=== PATIENT | male | born 1955 | race Caucasian/White ===

== ENCOUNTER → 2016-10-14 | Outpatient (CLI) | payer OTHER ==
[~2016-10-14] MED LIST: ASPIRIN E.C.325 MG PO; LOPRESSOR25 MG PO; PLAVIX75 MG PO; ZESTRIL5 MG PO
== END | disposition home or self-care (01) ==
LOC: MRI 12:48
DX: D17.0 Benign lipomatous neoplasm of skin and subcutaneous tissue of head, face and neck (principal); J32.0 Chronic maxillary sinusitis

== ENCOUNTER 2016-12-16 11:18 | Emergency (ER) | payer OTHER ==
[~2016-12-16] VITALS: Ht 172.7 cm; Wt 73.5 kg
[2016-12-16] MEDS ORDERED: ATORVASTATIN CA40 M1 PO (11:26)
[2016-12-16] MEDS ORDERED: LEVOTHYROXIN0.025 M1 PO (11:26)
[2016-12-16] MEDS ORDERED: ELIQUIS5 M1 PO (11:28)
[2016-12-16] MEDS ORDERED: METOPROLOL TART50 M1 PO (11:28)
[2016-12-16] MEDS ORDERED: FLECAINIDE ACET50 M1 PO (11:29)
[2016-12-16] MEDS ORDERED: LISINOPRIL40 MG PO (11:30)
[2016-12-16] MEDS ORDERED: VITAMIN D50000 I3 PO (11:31)
[2016-12-16] MEDS ORDERED: ASPIR 8181 MG PO (11:32)
[2016-12-16] MEDS ORDERED: NAPROSYN500 MG PO (12:45)
== END 2016-12-16 12:56 | disposition home or self-care (01) ==
LOC: ED 11:18
DX: M25.561 Pain in right knee (principal); F17.200 Nicotine dependence, unspecified, uncomplicated; Z79.82 Long term (current) use of aspirin; Z79.899 Other long term (current) drug therapy

== ENCOUNTER → 2017-09-15 | Outpatient (CLI) | payer OTHER ==
[~2017-09-15] MED LIST changes: +ASPIR 8181 MG PO; +ATORVASTATIN CA40 M1 PO; +ELIQUIS5 M1 PO; +FLECAINIDE ACET50 M1 PO; +LEVOTHYROXIN0.025 M1 PO; +LISINOPRIL40 MG PO; +METOPROLOL TART50 M1 PO; +NAPROSYN500 MG PO; +VITAMIN D50000 I3 PO
== END | disposition home or self-care (01) ==
LOC: CARD 12:43
DX: I51.7 Cardiomegaly (principal); R60.0 Localized edema

== ENCOUNTER → 2018-04-26 | Outpatient (CLI) | payer OTHER ==
[2018-04-26 09:16] LABS: BUN 10 mg/dl (7-24); CHLORIDE 97 mmol/L (98-107); CREATININE 0.86 mg/dL (0.70-1.30); POTASSIUM 3.1 mmol/L (3.5-5.1); SODIUM 133 mmol/L (136-145)
== END ==
LOC: LAB 08:24
PROVIDERS: Nurse Practitioner Adult Health
DX: I48.91 Unspecified atrial fibrillation (principal)

== ENCOUNTER 2018-05-17 20:13 | Inpatient (IN) | payer OTHER ==
[2018-05-17] VITALS (7 sets, daily range): BP systolic 143–160; BP diastolic 63–100
[~2018-05-17] VITALS: Ht 172.7 cm; Wt 80.9 kg
--- NOTE | ~2018-05-17 | PR ---
[place], [place] PROGRESS NOTE NAME: ERUM LEMONS UNIT #: [id number] ROOM: 406 DOCTOR: HARIS HESTER MD BIRTHDATE: [birth year] DOS: 05/21/2018 PULMONARY PROGRESS NOTE SUBJECTIVE: The patient noted comfortable at this time, resting on the bed, has not been noted any symptoms of chest pain, significant reduction in the respiratory symptoms were noted in the last 24 hours. The wheezing has been improving gradually. There were no symptoms of fever or chills or chest pain. The patient's overall symptoms are resolving. He was ambulating as well. OBJECTIVE: VITAL SIGNS: For the patient, which were recorded showed the temperature noted as normal, respiratory rate 20, heart rate of 105-84, blood pressure 119/74-171/95. Pulse oxygen saturation on room air was 90% saturation. HEENT: Moderate obesity. NECK: Supple. CARDIOVASCULAR: S1, S2 audible. LUNGS: The patient was noted with mild expiratory wheezing, [id number]-ejwodkto decreased breath sounds bilaterally. No crackles. ABDOMEN: Soft, nontender. Bowel sounds present. EXTREMITIES: No edema. LABORATORY DATA: Culture of the sputum from yesterday was noted preliminary normal gabby. IMPRESSION: Progressive improvement and resolution of chronic obstructive pulmonary disease exacerbation, acute tracheobronchitis, currently treated with maximum medical management, chronic nicotine dependence, suspected obstructive sleep apnea disorder. PLAN OF TREATMENT: The patient could be planned for discharge home at this time from the pulmonary standpoint. Tobacco cessation was recommended. The patient would like to be started on the nicotine replacement patch, which will be by the primary care attending prior to discharge. [place], [place] PROGRESS NOTE NAME: ERUM LEMONS UNIT #: [id number] ROOM: 406 DOCTOR: HARIS HESTER MD BIRTHDATE: [birth year] HARIS LE MD CM:PNTRANS [id number] HARIS ALLEN MD 05/21/182219 interface
--- NOTE | ~2018-05-17 | CON ---
[place], [place] REPORT OF CONSULTATION [id number] UNIT #: [id number] ROOM: 406 DOCTOR: HARIS HESTER MD BIRTHDATE: [birth year] DOS: 05/19/2018 CONSULTATION REQUESTED BY: Hospitalist Service. REASON FOR CONSULTATION: For assessment of COPD exacerbation. HISTORY OF PRESENT ILLNESS: This is a 63-year-old white male with past history of COPD, presented to the hospital. He has developed acute respiratory symptom approximately 10 days ago, which were noted progressively worsened. The symptoms have been noted with significant increased coughing, which remains nonproductive most of the time. Occasional sputum expectoration reported by the patient. The symptoms were associated with some chest pain under the ribs because of the excessive cough. The patient does have symptoms of wheezing and shortness of breath associated with that as well that has been worsened. He denies any symptoms of fever or chills with current symptom. He has been assessed on 05/17/2018, admitted to the hospital for further care. Currently, the patient treated for acute exacerbation of COPD and his management. REVIEW OF SYSTEMS: CONSTITUTIONAL: Fatigue and tiredness reported. Denies symptoms of fever or chills. EYES: Denies burning, redness, or tenderness. EARS, NOSE, THROAT SYMPTOMS: Denies sore throat, hoarseness, otalgia, possible drainage or epistaxis. CARDIOVASCULAR: Denies anginal pain, edema, or pain of lower extremities. GASTROINTESTINAL: Dysphagia, nausea, vomiting, diarrhea, abdominal pain, hematemesis, melena, or hematochezia. GENITOURINARY: No dysuria, suprapubic pain, hematuria. MUSCULOSKELETAL: Joint pain, deformities or redness. CENTRAL NERVOUS SYSTEM: Denies diplopia, syncopal episodes or seizures. SKIN: No lesions or rashes. Remaining systems were reviewed. They were noted all negative. PAST MEDICAL HISTORY: 1. COPD. 2. Permanent atrial fibrillation with failed electrical cardioversion. 3. Peripheral arterial disease. 4. Essential hypertension. 5. Hypothyroidism. SOCIAL HISTORY: The patient is , has one child, lives at home. Smoking noted. Active smoking started as in the teen, pack of cigarettes per day, active tobacco use until hospitalization. PAST SURGICAL HISTORY: Noted surgery of the hand. FAMILY HISTORY: Father at 73 years old, complication of myocardial infarction. Mother with complication of unknown cancer between the age of 15-60 years old. [place], [place] REPORT OF CONSULTATION NAME: ERUM LEMONS UNIT #: [id number] ROOM: [facility] DOCTOR: MIMI ALELN MD,HARIS BIRTHDATE: [birth year] HOME MEDICATIONS: Listed as use of Norvasc, Eliquis, aspirin, Lipitor, vitamin D, flecainide, Breo Ellipta, Lasix, gabapentin, levothyroxine, lisinopril, metoprolol tartrate, naproxen, potassium chloride. DRUG ALLERGIES: Noted with no known drug allergies. PHYSICAL EXAMINATION: GENERAL: This is a [id number] male who has been currently noted awake, alert, without acute distress. VITAL SIGNS: Height 5 feet 8 inches, weight 178 pounds, BMI 27. Vital signs as a normal temperature, respiratory rate 18-24, heart rate of 88-116, blood pressure is 148/96 to 143/76. The pulse oxygen saturation on 2 liters nasal cannula 98% saturation. HEENT: Head was atraumatic. Eyes nonicterus. NECK: Supple. CARDIOVASCULAR: S1, S2 audible. LUNGS: The patient noted with diffuse reduction in breath sounds, expiratory wheezing bilaterally. There were no crackles. ABDOMEN: Soft, nontender. Bowel sounds present. EXTREMITIES: No acute edema, clubbing, cyanosis. MUSCULOSKELETAL: Without any acute deformities. CENTRAL NERVOUS SYSTEM: The patient's cranial nerves 2-12 intact. LABORATORY DATA: Blood culture was noted without any bacterial growth on 05/17/2018 on admission. CBC on 05/17/2018, WBC count is 11.6, remaining CBC normal. PT/PTT on 05/17/2018 is normal. Lactic acid 2.4 on admission. CMP on 05/17/2018 normal BUN and creatinine. Sodium 130. The CMP that was done this morning, sodium 132, normal BUN and creatinine. CBC this morning, WBC count 16.6, hemoglobin and hematocrit were normal. The platelet count was noted at 107 this morning. CBC of , platelet count 110,000. . LFTs was noted with AST mildly elevated at 167. Troponin, which was done on admission 05/17/2018 were all normal sets. Chest x-ray that was done, 1 view, was reviewed from the PACS images independently shows changes of COPD, hyperinflation without any acute pulmonary infiltration. IMPRESSION: 1. The patient with progressive acute respiratory symptom, worsened. The patient with acute exacerbation of chronic obstructive pulmonary disease in the last several days. History of chronic nicotine dependence, 1 pack of cigarettes per day. 2. Mild thrombocytopenia. The patient's etiology unclear at this time. 3. Essential hypertension. 4. Hypothyroidism. 5. History of permanent atrial fibrillation. PLAN OF TREATMENT: The dose of steroids will be gradually decreased and we will monitor respiratory symptom. Continue anticoagulation. Maximal management of the atrial fibrillation, nicotine placement patches to be continued. Continue the antibiotic, which has been started intravenously could be switched to oral [place], [place] REPORT OF CONSULTATION NAME: ERUM LEMONS UNIT #: [id number] ROOM: 406 DOCTOR: MIIM ALLEN MD,HARIS BIRTHDATE: [birth year] antibiotics as IV antibiotics not necessary because of lack of any pneumonia. All other supportive therapy, plan of management, care plan for the patient. Changes in the medical management. The patient will be ordered based on the progression of the illness. One thing about tobacco cessation has been done for the patient at the bedside as well. He was stating that he would like to quit smoking cigarettes and would not be smoking cigarettes after discharge from the hospital. The sputum for Gram stain culture will be ordered for the patient as well. Thanks for allowing to participate in the care of this patient. HARIS LE MD CM:CONSTR:REPORT OF CONSULTATION [id number] 05/19/18 1950 interface
--- NOTE | ~2018-05-17 | EKG ---
[place], [place] ELECTROCARDIOGRAM REPORT NAME: TERRY LEMONS UNIT #: [id number] ROOM: 406 DOCTOR: CARLOS DRAFT REPORT BIRTHDATE: [birth year] [facility] Test Date: 2018-05-17 Test Time: 20:34:11 Pat Name: TERRY LEMONS Department: ER Room: 406 Gender: M Upholstery Sewer: Terry Muñoz : 1955 Requested By: GURWINDER DOE Order Number: [id number] Reading MD: Terry Zhang MD Measurements Intervals Edgard Rate: 94 P: AK: QRS: 111 QRSD: 126 T: QT: 411 QTc: 515 Interpretive Statements Atrial fibrillation Nonspecific intraventricular conduction delay Nonspecific repol abnormality, lateral leads Electronically Signed On 05-18-2018 17:51:36 PST by Terry Zhang MD CM:EKGRPT:ELECTROCARDIOGRAM REPORT [id number] GURWINDER PALACIOS DRAFT REPORT GURWINDER DOE DO
--- NOTE | ~2018-05-17 | PR ---
[place], [place] PROGRESS NOTE NAME[facility]: [id number] UNIT #: [id number] ROOM: 406 DOCTOR: MIMI ALLEN MD,HARIS BIRTHDATE: [birth year] DOS: 05/20/2018 PULMONARY PROGRESS NOTE SUBJECTIVE: The patient has been noted comfortable at this time without any acute distress at the present time. Has not been noted any symptoms of chest pain, fever or chills. Shortness of breath symptom have been decreased, but not completely resolved in the last 24 hours. OBJECTIVE: VITAL SIGNS: Normal temperature, respiratory rate 20, heart rate 79, blood pressure 135/75. The pulse oxygen saturation recorded as 97% saturation on 2 liters nasal cannula. HEENT: Examination shows head was atraumatic. Eyes nonicterus. NECK: Supple. CARDIOVASCULAR: S1, S2 is audible. LUNGS: The patient was noted with xoee-ps-mrdwipcr expiratory wheezing, decreased from previous examination. There are no crackles. ABDOMEN: Soft, nontender. EXTREMITIES: Without any acute edema. LABORATORY DATA: The patient's CMP on 05/20/2018 WBC count noted 13.6, hemoglobin 13.5, platelet count was 99,000. CMP of the patient, normal BUN and creatinine. Glucose 113. IMPRESSION: Stable respiratory status, which is responding to current treatment for acute exacerbation of chronic obstructive pulmonary disease, acute bronchitis, moderate obesity, thrombocytopenia. PLAN OF MANAGEMENT: Agree with reduction of the corticosteroids. Ambulation will be encouraged. Possible discharge consideration in the morning would be considered as well. HARIS LE MD CM:PNTRANS [id number] 0 HARIS ALLEN MD 05/21/18 010 interface
[2018-05-17 20:48] LABS: BASO % 0.3 % (0.0-1.0); EOS % 0.3 % (1.0-4.0); HEMATOCRIT 46.7 % (42.0-52.0); HEMOGLOBIN 15.7 g/dl (14.0-18.0); LYMPH # 1.3 10*3/uL (1.3-4.4); LYMPH % 11.5 % (27.0-41.0); MEAN CELL VOLUME 103.8 fl (80.0-94.0); MEAN CORPUSCULAR HGB 34.9 pg (27.0-31.0); MEAN CORPUSCULAR HGB CONC 33.6 g/dl (33.0-37.0); MEAN PLATELET VOLUME 10.4 fl (9.6-12.3); MONO # 0.8 10*3/uL (0.1-1.0); MONO % 6.7 % (3.0-9.0); NEUT # 9.3 10*3/uL (2.3-7.9); NEUT % 80.8 % (47.0-73.0); PLATELET COUNT AUTOMATED 110 10*3/uL (130-400); RED CELL DISTRI WIDTH 13.7 % (0-14.5); WHITE BLOOD COUNT 11.6 10*3/uL (4.8-10.8)
[2018-05-17 20:59] LABS: ACT PARTIAL THROMBO TIME 31.8 SECONDS (20.8-31.5); INTERNATIONAL NORM RATIO 1.3 (2.0-3.5)
[2018-05-17 21:05] LABS: ALBUMIN 2.9 gm/dl (3.1-4.5); ALKALINE PHOSPHATASE 124 U/L (45-117); BUN 14 mg/dl (7-24); CHLORIDE 100 mmol/L (98-107); CREATININE 0.91 mg/dL (0.70-1.30); POTASSIUM 4.2 mmol/L (3.5-5.1); SGOT/AST 67 IU/L (3-35); SGPT/ALT 57 U/L (12-78); SODIUM 130 mmol/L (136-145); TOTAL PROTEIN 7.6 gm/dL (6.4-8.2)
[2018-05-17 21:06] LABS: TROPONIN I < 0.015 ng/ml (<0.045)
[2018-05-17] MEDS ORDERED: BREO ELLIPTA 11 EACH INH (23:55)
[2018-05-17] MEDS ORDERED: AMLODIPINE BESYL5 MG PO (23:55)
[2018-05-17] MEDS ORDERED: POTASSIUM CHLO20 ME3 PO (23:55)
[2018-05-17] MEDS ORDERED: FUROSEMIDE20 M1 PO (23:55)
[2018-05-17] MEDS ORDERED: GABAPENTIN100 M2 PO (23:56)
[2018-05-18 04:00] VITALS: BP 148/96
[2018-05-18 06:32] LABS: HEMATOCRIT 45.8 % (42.0-52.0); HEMOGLOBIN 15.3 g/dl (14.0-18.0); MEAN CELL VOLUME 103.9 fl (80.0-94.0); MEAN CORPUSCULAR HGB 34.7 pg (27.0-31.0); MEAN CORPUSCULAR HGB CONC 33.4 g/dl (33.0-37.0); MEAN PLATELET VOLUME 10.7 fl (9.6-12.3); PLATELET COUNT AUTOMATED 104 10*3/uL (130-400); RED BLOOD COUNT 4.41 10*6/uL (4.50-5.90); RED CELL DISTRI WIDTH 13.6 % (0-14.5); WHITE BLOOD COUNT 10.4 10*3/uL (4.8-10.8)
[2018-05-18 06:36] LABS: INTERNATIONAL NORM RATIO 1.3 (2.0-3.5)
[2018-05-18 06:38] LABS: ALBUMIN 2.6 gm/dl (3.1-4.5); ALKALINE PHOSPHATASE 110 U/L (45-117); BUN 13 mg/dl (7-24); CHLORIDE 100 mmol/L (98-107); CREATININE 0.88 mg/dL (0.70-1.30); FREE T4 0.87 ng/dl (0.76-1.46); POTASSIUM 4.5 mmol/L (3.5-5.1); SGOT/AST 59 IU/L (3-35); SGPT/ALT 51 U/L (12-78); SODIUM 130 mmol/L (136-145); TOTAL PROTEIN 7.1 gm/dL (6.4-8.2)
[2018-05-18 08:16] LABS: PLATELET SUFFICIENCY LOW (NORMAL); TOTAL CELLS COUNTED 100 #CELLS
[2018-05-18 12:00] VITALS: BP 142/76
[2018-05-18 16:00] VITALS: BP 143/76
[2018-05-18 20:00] VITALS: BP 142/70
[2018-05-19] VITALS: BP 149/96
[2018-05-19 07:31] LABS: BASO % 0.1 % (0.0-1.0); EOS % 0.1 % (1.0-4.0); HEMATOCRIT 46.2 % (42.0-52.0); HEMOGLOBIN 15.1 g/dl (14.0-18.0); LYMPH % 6.1 % (27.0-41.0); MEAN CELL VOLUME 104.3 fl (80.0-94.0); MEAN CORPUSCULAR HGB 34.1 pg (27.0-31.0); MEAN CORPUSCULAR HGB CONC 32.7 g/dl (33.0-37.0); MEAN PLATELET VOLUME 10.8 fl (9.6-12.3); MONO # 0.6 10*3/uL (0.1-1.0); MONO % 3.3 % (3.0-9.0); NEUT # 14.9 10*3/uL (2.3-7.9); NEUT % 89.9 % (47.0-73.0); PLATELET COUNT AUTOMATED 107 10*3/uL (130-400); RED BLOOD COUNT 4.43 10*6/uL (4.50-5.90); RED CELL DISTRI WIDTH 13.8 % (0-14.5); WHITE BLOOD COUNT 16.6 10*3/uL (4.8-10.8)
[2018-05-19 07:47] LABS: ALBUMIN 2.6 gm/dl (3.1-4.5); BUN 16 mg/dl (7-24); CHLORIDE 102 mmol/L (98-107); POTASSIUM 4.2 mmol/L (3.5-5.1); SODIUM 132 mmol/L (136-145)
[2018-05-19 07:51] LABS: ALKALINE PHOSPHATASE 103 U/L (45-117); CREATININE 0.75 mg/dL (0.70-1.30); PHOSPHOROUS 2.3 mg/dL (2.5-4.9); SGOT/AST 70 IU/L (3-35); SGPT/ALT 54 U/L (12-78); TOTAL PROTEIN 6.8 gm/dL (6.4-8.2)
[2018-05-19 08:00] VITALS: BP 140/90
[2018-05-19 12:00] VITALS: BP 137/82
[2018-05-19 16:00] VITALS: BP 132/74
[2018-05-19 20:00] VITALS: BP 140/65
[2018-05-20] VITALS: BP 134/80
[2018-05-20 05:59] LABS: BASO % 0.1 % (0.0-1.0); EOS % 0.1 % (1.0-4.0); HEMATOCRIT 41.8 % (42.0-52.0); HEMOGLOBIN 13.5 g/dl (14.0-18.0); LYMPH # 0.8 10*3/uL (1.3-4.4); LYMPH % 5.5 % (27.0-41.0); MEAN CORPUSCULAR HGB 33.9 pg (27.0-31.0); MEAN CORPUSCULAR HGB CONC 32.3 g/dl (33.0-37.0); MEAN PLATELET VOLUME 10.6 fl (9.6-12.3); MONO # 0.7 10*3/uL (0.1-1.0); MONO % 4.8 % (3.0-9.0); NEUT # 12.1 10*3/uL (2.3-7.9); NEUT % 88.9 % (47.0-73.0); PLATELET COUNT AUTOMATED 99 10*3/uL (130-400); RED BLOOD COUNT 3.98 10*6/uL (4.50-5.90); RED CELL DISTRI WIDTH 14.1 % (0-14.5); WHITE BLOOD COUNT 13.6 10*3/uL (4.8-10.8)
[2018-05-20 06:21] LABS: ALBUMIN 2.2 gm/dl (3.1-4.5); ALKALINE PHOSPHATASE 98 U/L (45-117); BUN 21 mg/dl (7-24); CHLORIDE 104 mmol/L (98-107); CREATININE 0.78 mg/dL (0.70-1.30); PHOSPHOROUS 2.3 mg/dL (2.5-4.9); POTASSIUM 4.1 mmol/L (3.5-5.1); SGOT/AST 77 IU/L (3-35); SGPT/ALT 62 U/L (12-78); SODIUM 135 mmol/L (136-145); TOTAL PROTEIN 5.7 gm/dL (6.4-8.2)
[2018-05-20 08:00] VITALS: BP 140/70
[2018-05-20 12:00] VITALS: BP 135/75
[2018-05-20 16:00] VITALS: BP 149/90
[2018-05-20 20:00] VITALS: BP 156/85
[2018-05-21] VITALS: BP 119/74
[2018-05-21 04:03] LABS: ADENOVIRUS Negative (Negative); INFLUENZA A Negative (Negative); INFLUENZA B Negative (Negative); METAPNEUMOVIRUS Negative (Negative); PARAINFLUENZA 1 Negative (Negative); PARAINFLUENZA 2 Negative (Negative); PARAINFLUENZA 3 Negative (Negative); RHINOVIRUS Positive (Negative); RSV A Negative (Negative); RSV B Negative (Negative)
[2018-05-21 06:27] LABS: BASO % 0.1 % (0.0-1.0); EOS % 0.2 % (1.0-4.0); HEMATOCRIT 43.7 % (42.0-52.0); HEMOGLOBIN 14.5 g/dl (14.0-18.0); LYMPH # 1.1 10*3/uL (1.3-4.4); LYMPH % 8.2 % (27.0-41.0); MEAN CELL VOLUME 105.8 fl (80.0-94.0); MEAN CORPUSCULAR HGB 35.1 pg (27.0-31.0); MEAN CORPUSCULAR HGB CONC 33.2 g/dl (33.0-37.0); MEAN PLATELET VOLUME 10.7 fl (9.6-12.3); MONO % 7.4 % (3.0-9.0); NEUT # 11.3 10*3/uL (2.3-7.9); NEUT % 83.4 % (47.0-73.0); PLATELET COUNT AUTOMATED 107 10*3/uL (130-400); RED BLOOD COUNT 4.13 10*6/uL (4.50-5.90); RED CELL DISTRI WIDTH 14.3 % (0-14.5); WHITE BLOOD COUNT 13.6 10*3/uL (4.8-10.8)
[2018-05-21 06:58] LABS: BUN 22 mg/dl (7-24); CHLORIDE 100 mmol/L (98-107); CREATININE 0.75 mg/dL (0.70-1.30); POTASSIUM 4.1 mmol/L (3.5-5.1); SODIUM 134 mmol/L (136-145)
[2018-05-21 08:00] VITALS: BP 171/95
[2018-05-21] MEDS ORDERED: DOXYCYCLINE MO100 M1 PO (12:11)
[2018-05-21] MEDS ORDERED: PREDNISONE10 MG PO (12:11)
[2018-05-21] MEDS ORDERED: NICODERM CQ1 EAC2 TD (12:11)
== END 2018-05-21 12:57 | disposition home or self-care (01) | DRG 871 ==
LOC: ED 20:13 → 4E 22:34 → EDHOLD 22:34 → 4E 22:46
PROVIDERS: Family Medicine; Internal Medicine; Student in an Organized Health Care Education/Training Program
DX: A41.9 Sepsis, unspecified organism (principal); J18.9 Pneumonia, unspecified organism; E87.1 Hypo-osmolality and hyponatremia; J44.1 Chronic obstructive pulmonary disease with (acute) exacerbation; J44.0 Chronic obstructive pulmonary disease with (acute) lower respiratory infection; R65.20 Severe sepsis without septic shock; R74.0 Nonspecific elevation of levels of transaminase and lactic acid dehydrogenase [LDH]; E66.09 Other obesity due to excess calories; F17.210 Nicotine dependence, cigarettes, uncomplicated; I48.2 Chronic atrial fibrillation; J20.9 Acute bronchitis, unspecified; D69.6 Thrombocytopenia, unspecified; I48.0 Paroxysmal atrial fibrillation; R60.0 Localized edema; F10.10 Alcohol abuse, uncomplicated; I73.9 Peripheral vascular disease, unspecified; I10 Essential (primary) hypertension; E03.9 Hypothyroidism, unspecified; E83.39 Other disorders of phosphorus metabolism; Z82.49 Family history of ischemic heart disease and other diseases of the circulatory system; Z80.9 Family history of malignant neoplasm, unspecified; Z79.899 Other long term (current) drug therapy; Z79.82 Long term (current) use of aspirin; Z71.6 Tobacco abuse counseling; Z68.27 Body mass index [BMI] 27.0-27.9, adult

== ENCOUNTER → 2018-07-14 | Outpatient (CLI) | payer OTHER ==
[~2018-07-14] MED LIST changes: +ACETAMINOPHEN500 M4 PO; +ALDACTONE25 MG PO; +AMLODIPINE BESYL5 MG PO; +BREO ELLIPTA 11 EACH INH; +CHLORHEXIDINE473 M1 PO; +DIGOX125 MCG PO; +DOXYCYCLINE MO100 M1 PO; +DOXYCYCLINE100 MG PO; +FUROSEMIDE20 M1 PO; +GABAPENTIN100 M2 PO; +LASIX40 MG PO; +LOSARTAN POTASS25 M1 PO; +METOPROLOL SUC100 M1 PO; +NICODERM CQ1 EAC2 TD; +POTASSIUM CHLO20 ME3 PO; +PREDNISONE10 MG PO
[2018-07-14 15:50] LABS: BUN 12 mg/dl (7-24); CHLORIDE 100 mmol/L (98-107); POTASSIUM 3.7 mmol/L (3.5-5.1); SODIUM 137 mmol/L (136-145)
== END | disposition home or self-care (01) ==
LOC: LAB 15:15
PROVIDERS: Internal Medicine Cardiovascular Disease
DX: I48.91 Unspecified atrial fibrillation (principal)

== ENCOUNTER → 2018-07-22 | Outpatient (CLI) | payer OTHER ==
[2018-07-22 19:01] LABS: CREATININE 1.7 mg/dL (0.70-1.30); POTASSIUM 3.7 mmol/L (3.5-5.1)
== END | disposition home or self-care (01) ==
LOC: LAB 18:05
PROVIDERS: Internal Medicine Cardiovascular Disease
DX: I48.91 Unspecified atrial fibrillation (principal)

== ENCOUNTER → 2018-11-16 | Outpatient (CLI) | payer OTHER ==
[2018-11-16 16:10] LABS: BUN 17 mg/dl (7-24); CHLORIDE 100 mmol/L (98-107); CREATININE 1.15 mg/dL (0.70-1.30); PHOSPHOROUS 3.6 mg/dL (2.5-4.9); POTASSIUM 4.4 mmol/L (3.5-5.1); SODIUM 135 mmol/L (136-145)
== END | disposition home or self-care (01) ==
LOC: LAB 14:16
PROVIDERS: Internal Medicine
DX: E87.5 Hyperkalemia (principal)

== ENCOUNTER 2019-04-04 17:16 | Inpatient (IN) | payer OTHER ==
[~2019-04-04] VITALS: Ht 172.7 cm; Wt 69.9 kg
[2019-04-04 17:20] VITALS: BP 112/47
--- NOTE | 2019-04-04 17:26 | NUR ---
NURSE REPORT TO NICOLE LEVINE, FOR CONTINUATION OF CARE.
[2019-04-04 17:47] LABS: BASO # 0.1 10*3/uL (0.0-0.1); BASO % 0.5 % (0.0-1.0); EOS % 0.3 % (1.0-4.0); HEMATOCRIT 51.7 % (42.0-52.0); LYMPH # 2.1 10*3/uL (1.3-4.4); LYMPH % 15.1 % (27.0-41.0); MEAN CELL VOLUME 104.7 fl (80.0-94.0); MEAN CORPUSCULAR HGB 34.4 pg (27.0-31.0); MEAN CORPUSCULAR HGB CONC 32.9 g/dl (33.0-37.0); MEAN PLATELET VOLUME 10.4 fl (9.6-12.3); MONO # 1.1 10*3/uL (0.1-1.0); NEUT # 10.6 10*3/uL (2.3-7.9); NEUT % 75.6 % (47.0-73.0); PLATELET COUNT AUTOMATED 185 10*3/uL (130-400); RED BLOOD COUNT 4.94 10*6/uL (4.50-5.90); RED CELL DISTRI WIDTH 14.2 % (0-14.5)
[2019-04-04 18:03] LABS: ALBUMIN 3.3 gm/dl (3.1-4.5); ALKALINE PHOSPHATASE 99 U/L (45-117); BUN 46 mg/dl (7-24); CHLORIDE 97 mmol/L (98-107); CREATININE 4.63 mg/dL (0.70-1.30); POTASSIUM 4.6 mmol/L (3.5-5.1); SGOT/AST 30 IU/L (3-35); SGPT/ALT 32 U/L (12-78); SODIUM 131 mmol/L (136-145); TOTAL PROTEIN 8.2 gm/dL (6.4-8.2)
[2019-04-04 18:08] LABS: TROPONIN I < 0.015 ng/ml (<0.045)
[2019-04-04 18:14] LABS: ACT PARTIAL THROMBO TIME 30.8 SECONDS (20.0-32.1); INTERNATIONAL NORM RATIO 1.1 (2.0-3.5)
--- NOTE | 2019-04-04 18:40 | NUR ---
PT PROVIDED URINAL. STATES HE IS UNABLE TO URINATE, WILL TRY AGAIN.
--- NOTE | 2019-04-04 19:34 | NUR ---
PT STILL UNABLE TO URINATE.
[2019-04-04 20:11] VITALS: BP 117/74
[2019-04-04 20:40] VITALS: BP 121/67
[2019-04-04] MEDS ORDERED: COZAAR100 MG PO (21:08)
[2019-04-04] MEDS ORDERED: VITAMIN D50000 UNIT PO (21:08)
[2019-04-04] MEDS ORDERED: CYCLOBENZAPRINE10 MG PO (21:09)
[2019-04-04] MEDS ORDERED: DILT-XR240 MG PO (21:13)
--- NOTE | 2019-04-04 21:15 | NUR ---
HOME MED REC UP TO DATE PER PATIENT RECALL/MEDICATIONS BOTTLES FROM HOME.
--- NOTE | 2019-04-04 21:48 | NUR ---
ORTHOS DONE & POSITIVE. PT SYMPTOMATIC C/O DIZZINESS & LIGHTHEADEDNESS. WILL NOTIFY DRArmani SUPINE- BP: 113/58 HR: 79 SITTING-BP: 89/56 HR:81 STANDING- BP: 63/51 HR: 80
--- NOTE | 2019-04-04 21:55 | NUR ---
NOTIFIED OF PT'S +ORTHOS. INSTRUCTED TO BOLUS 1 LITER NOW & RUN THE REST AT 125 ML/HR
--- NOTE | 2019-04-04 22:00 | NUR ---
BOLUS INITIATED AT THIS TIME PER ORDER. TEDs & NON-SKID SOCKS PROVIDED.
--- NOTE | 2019-04-04 23:00 | NUR ---
BOLUS COMPLETE AT THIS TIME. MAINTENANCE FLUIDS RUNNING AT 125 ML/HR. TEDS & NON-SKID SOCKS APPLIED. PT LEFT WITH BED IN LOW POSITION. BED ALARM INTACT. CALL LIGHT IN REACH.
[2019-04-05] VITALS: BP 122/86
--- NOTE | 2019-04-05 01:21 | NUR ---
PT'S HOME MEDICATIONS COUNTED/VERIFIED BY TWO RNs. WILL BE SENT TO PHARMACY PER POLICY.
[2019-04-05 02:03] LABS: BILIRUBIN NEGATIVE (NEGATIVE); BLOOD TRACE-INTACT (NEGATIVE); CLARITY CLEAR (CLEAR); COLOR YELLOW (YELLOW); GLUCOSE NEGATIVE (NEGATIVE); KETONE NEGATIVE (NEGATIVE); LEUKO ESTERASE NEGATIVE (NEGATIVE); NITRITE NEGATIVE (NEGATIVE); PH 5.5 (5.0-9.0); SPECIFIC GRAVITY 1.025 (1.005-1.030)
[2019-04-05 02:12] LABS: RBC 0-2 rbc/hpf (0-2); WBC 0-2 wbc/hpf (0-5)
[2019-04-05 07:08] LABS: BASO # 0.1 10*3/uL (0.0-0.1); BASO % 0.5 % (0.0-1.0); CREATININE 3.5 mg/dL (0.70-1.30); EOS # 0.1 10*3/uL (0.0-0.4); EOS % 1.1 % (1.0-4.0); HEMATOCRIT 44.4 % (42.0-52.0); HEMOGLOBIN 14.4 g/dl (14.0-18.0); LYMPH # 1.5 10*3/uL (1.3-4.4); LYMPH % 15.7 % (27.0-41.0); MEAN CELL VOLUME 103.5 fl (80.0-94.0); MEAN CORPUSCULAR HGB 33.6 pg (27.0-31.0); MEAN CORPUSCULAR HGB CONC 32.4 g/dl (33.0-37.0); MEAN PLATELET VOLUME 10.2 fl (9.6-12.3); NEUT # 6.7 10*3/uL (2.3-7.9); NEUT % 71.3 % (47.0-73.0); PHOSPHOROUS 4.5 mg/dL (2.5-4.9); PLATELET COUNT AUTOMATED 138 10*3/uL (130-400); POTASSIUM 4.8 mmol/L (3.5-5.1); RED BLOOD COUNT 4.29 10*6/uL (4.50-5.90); WHITE BLOOD COUNT 9.4 10*3/uL (4.8-10.8)
[2019-04-05 08:00] VITALS: BP 110/70
--- NOTE | 2019-04-05 08:47 | NUR ---
NOTIFIED D5R KAREN OF NEW CONSULT FOR CAD,CHRONIC CHF,AMANDA.
[2019-04-05 12:00] VITALS: BP 103/79
--- NOTE | 2019-04-05 13:03 | NUR ---
PT HOME MEDS DELIVERED TO PHARMACY BY THIS RN.
--- NOTE | 2019-04-05 13:23 | NUR ---
Assembly Line Supervisor in to talk to patient. Patient states lives at HOME with GIRLFRIEND. There are NO steps in the home. Physician: MARIA LUISA Pharmacy: [facility] [place] [facility]: NONE Patient's level of ADLs: INDEPENDENT Patient has working utilities: YES DME: [facility]BUL[facility]ER Follow-up physician's appointment after d/c: WILL BE MADE BY HOSPITALIST NURSE DIRECTOR ON DISCHARGE. Does patient want to access PORTAL?: NO Discharge plan PT LIVES AT HOME WITH HIS GIRLFRIEND AND IS INDEPENDENT IN HIS CARE. DENIES HE WILL HAVE ANY NEEDS ON DISCHARGE. PLAN IS TO RETURN HOME WHEN MEDICALLY STABLE. WILL CONTINUE TO FOLLOW. STATES HE ONEL LHAVE A RIDE HOME.. NICOL JOHNSTON
--- NOTE | 2019-04-05 13:36 | NUR ---
PROVIDED EDUCATION REGARDING S/S ALCOHOL WITHDRAWAL. PT STATES HE DRINKS 5-6 BEERS DAILY. PT STABLE BUT I NOTICED FINE TREMORS TO BILATERAL HANDS. PT STATES THAT THESE TREMORS ARE NORMAL FOR HIM AND NOT ALCOHOLIC R/T ETOH.
[2019-04-05 16:00] VITALS: BP 143/64
--- NOTE | 2019-04-05 16:25 | NUR ---
PT REQUESTING NICOTINE PATCH. ORDER RECIEVED.
[2019-04-05 20:00] VITALS: BP 140/93
--- NOTE | 2019-04-05 21:25 | NUR ---
NOTIFIED OF PT'S REQUEST FOR FLEXERIL. NEW ORDERS TO FOLLOW.
--- NOTE | 2019-04-05 21:58 | NUR ---
PO TYLENOL AND PO FLEXERIL ADMINISTERED PER ORDER FOR C/O HEADACHE/SINUS PRESSURE AND MUSCLE SPASMS. WILL MONITOR. CALL LIGHT IN REACH.
[2019-04-06] VITALS: BP 135/67
--- NOTE | 2019-04-06 01:19 | NUR ---
PT ASLEEP IN BED. RESPIRATIONS EASY. NO S/S OF DISTRESS NOTED. WILL MONITOR. BED LOCKED IN LOW POSITION. BED ALARM INTACT. CALL LIGHT IN REACH.
--- NOTE | 2019-04-06 04:07 | NUR ---
PT ASLEEP IN BED. RESPIRATIONS EASY. NO S/S OF DISTRESS NOTED. WILL MONITOR. CALL LIGHT IN REACH.
[2019-04-06 08:00] VITALS: BP 138/88
[2019-04-06 08:04] VITALS: BP 170/80
[2019-04-06 08:35] LABS: CREATININE 1.97 mg/dL (0.70-1.30); POTASSIUM 4.5 mmol/L (3.5-5.1)
--- NOTE | 2019-04-06 09:38 | NUR ---
PT REQUESTED NORCO PO PER PRN ORDER FOR C/O BACK PAIN. RATES PAIN /10. WILL MONITOR EFFECTIVENESS.
--- NOTE | 2019-04-06 11:00 | NUR ---
VALDEZ EFFECTIVE PER PT.
[2019-04-06 12:00] VITALS: BP 150/80
--- NOTE | 2019-04-06 14:09 | NUR ---
MS Patient signed out AMA. Patient encouraged to stay and advised of possible consequences of premature discharge. Physician and rubbish collection supervisor DIEGO notified. Patient instructed what to do regarding care post-departure from the hospital; emergency phone numbers provided. Patent was accompanied by SELF. RED ASH
--- NOTE | 2019-04-06 14:25 | NUR ---
PT CONTINUES TO DENY NEEDS AT HOME. WILL DISCHARGE HOME WHEN MEDICALLY STABLE.
== END 2019-04-06 14:09 | disposition left against medical advice (07) | DRG 204 ==
LOC: ED 17:16 → EDHOLD 19:03 → 5E 19:03
PROVIDERS: Emergency Medicine; Internal Medicine; Student in an Organized Health Care Education/Training Program; ADMIT Family Medicine
DX: I95.1 Orthostatic hypotension (principal); N17.0 Acute kidney failure with tubular necrosis; I73.9 Peripheral vascular disease, unspecified; E44.0 Moderate protein-calorie malnutrition; D75.89 Other specified diseases of blood and blood-forming organs; E87.1 Hypo-osmolality and hyponatremia; E87.8 Other disorders of electrolyte and fluid balance, not elsewhere classified; R73.9 Hyperglycemia, unspecified; E87.2 Acidosis; I48.21 Permanent atrial fibrillation; E03.9 Hypothyroidism, unspecified; I10 Essential (primary) hypertension; F10.10 Alcohol abuse, uncomplicated; F17.208 Nicotine dependence, unspecified, with other nicotine-induced disorders; D72.829 Elevated white blood cell count, unspecified; Z53.29 Procedure and treatment not carried out because of patient's decision for other reasons; J44.9 Chronic obstructive pulmonary disease, unspecified; Z82.49 Family history of ischemic heart disease and other diseases of the circulatory system; I25.2 Old myocardial infarction; Z79.82 Long term (current) use of aspirin; Z71.6 Tobacco abuse counseling; Z68.23 Body mass index [BMI] 23.0-23.9, adult

== ENCOUNTER → 2019-04-20 | Outpatient (CLI) | payer OTHER ==
[~2019-04-20] MED LIST changes: +COZAAR100 MG PO; +CYCLOBENZAPRINE10 MG PO; +DILT-XR240 MG PO; +VITAMIN D50000 UNIT PO
[2019-04-20 14:57] LABS: BASO # 0.1 10*3/uL (0.0-0.1); BASO % 0.8 % (0.0-1.0); EOS # 0.1 10*3/uL (0.0-0.4); EOS % 0.8 % (1.0-4.0); HEMATOCRIT 44.3 % (42.0-52.0); HEMOGLOBIN 14.5 g/dl (14.0-18.0); LYMPH # 2.3 10*3/uL (1.3-4.4); MEAN CELL VOLUME 103.7 fl (80.0-94.0); MEAN CORPUSCULAR HGB CONC 32.7 g/dl (33.0-37.0); MEAN PLATELET VOLUME 9.6 fl (9.6-12.3); MONO # 0.9 10*3/uL (0.1-1.0); NEUT # 6.7 10*3/uL (2.3-7.9); NEUT % 66.1 % (47.0-73.0); PLATELET COUNT AUTOMATED 175 10*3/uL (130-400); RED BLOOD COUNT 4.27 10*6/uL (4.50-5.90); RED CELL DISTRI WIDTH 13.7 % (0-14.5); WHITE BLOOD COUNT 10.1 10*3/uL (4.8-10.8)
[2019-04-20 15:41] LABS: ALBUMIN 3.2 gm/dl (3.1-4.5); BUN 14 mg/dl (7-24); CHLORIDE 100 mmol/L (98-107); CREATININE 1.28 mg/dL (0.70-1.30); PHOSPHOROUS 3.4 mg/dL (2.5-4.9); POTASSIUM 3.5 mmol/L (3.5-5.1); SODIUM 136 mmol/L (136-145)
== END | disposition home or self-care (01) ==
LOC: LAB 14:28
PROVIDERS: Internal Medicine
DX: K92.1 Melena (principal)

== ENCOUNTER 2019-05-30 14:24 | Emergency (ER) | payer OTHER ==
[~2019-05-30] VITALS: Ht 172.7 cm; Wt 68.0 kg
[2019-05-30] MEDS ORDERED: CLINDAMYCIN HC300 MG PO (14:59)
[2019-05-30] MEDS ORDERED: NORCO 10-325 T1 EACH PO (14:59)
[2019-05-30] MEDS ORDERED: AMOXICILLIN500 M2 PO (14:59)
== END 2019-05-30 15:03 | disposition home or self-care (01) ==
LOC: ED 14:24
DX: K04.7 Periapical abscess without sinus (principal); I48.91 Unspecified atrial fibrillation; I25.2 Old myocardial infarction; I10 Essential (primary) hypertension; E03.9 Hypothyroidism, unspecified; J44.9 Chronic obstructive pulmonary disease, unspecified; F17.200 Nicotine dependence, unspecified, uncomplicated; Z79.899 Other long term (current) drug therapy; Z79.82 Long term (current) use of aspirin